=== PATIENT | male | born 1965 | race Caucasian/White ===

== ENCOUNTER 2025-04-08 12:20 | Outpatient (REF) | payer OTHER, SELFPAY ==
--- NOTE | ~2025-04-08 | XR_ITS ---
EXAMINATION: XR WRIST 3 OR MORE VIEWS RIGHT HISTORY: M25.531 - Pain in right wrist COMPARISON: There are no prior studies available for comparison. FINDINGS: Three views of the right wrist are submitted. Osseous mineralization is normal. There is no fracture or dislocation. The joint spaces are preserved. The soft tissues are unremarkable. XR/XR wrist RT min 3V IMPRESSION: Unremarkable examination of the right wrist. Electronically signed by: Shemar Billingsley MD 04/08/2025 02:01 PM EDT
--- OUTSIDE RECORDS SUMMARY | 2025-04-09 13:55 | XMS_ITS | Encounter Summary ---
Author Organization [facility] Address [address] [place] [address] Care Team Providers Care Drafter Electrical Name Role Phone Jono Sears MD Primary Care Provider [phone] Poppy Girard MD Unavailable Luke Church MD Unavailable [phone] Reason for Visit * Reason Comments ANXIOUS,NOT SLEEPING Encounter Details Date Type Department Care Team (Late st Contact Info) Description [address] 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 PLEASE CALL [phone] documented in this encounter Plan of Treatment Not on file documented as of this encounter Visit Diagnoses Not on filedocumented in this encounter Care Teams Drafter Electrical Relationship Specialty Start Date End Date Jono Sears MD [address] [place] [address] PCP - General 01/15/19 Poppy Girard MD [address] [place] [address] Cardiovascular Disease 01/15/19 Luke Church MD [address] [place] [address] Surgery, Cardiac 01/15/19 documented as of this encounter
--- OUTSIDE RECORDS SUMMARY | 2025-04-09 13:56 | XMS_ITS | Clinical Summary ---
Author Organization [facility] Address [address] [place], [place] [id number] Phone Care Team Providers Care Inspector Watch Parts Name Role Phone Jono Sears MD Primary Care Provider [phone] Social History Tobacco Use Types Packs/Day Years [...] PPO CIG[employer] PPO CIG PPO Care Teams Inspector Watch Parts Relationship Specialty Start Date End Date Jono Sears MD PCP - General Internal Medicine 12/05/18 Additional Source Comments The information contained in this document represents components of the legal health record. It is not the complete legal health record.[facility]
--- OUTSIDE RECORDS SUMMARY | 2025-04-09 13:56 | XMS_ITS | Clinical Summary ---
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 60 tablet 01/21/2019 Active Cannabidiol Non-THC (CBD) Misc [place]/Smoke/Vap or/Oil Inhale as needed. 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 Not on file [...] patient's age to complete this topic Insurance [address] [place], [place] [address] Advance Directives * Full Code (Latest Code Status on File) Date Activated Date Inactivated Comments 01/17/2019 5:52 PM * Full Code Date Activated Date Inactivated Comments 01/16/2019 1:43 PM 01/17/2019 5:52 PM Care Teams Contract Administrative Assistant Relationship Specialty Start Date End Date Jono Sears MD [address] [place] [address] PCP - General 01/15/19 Poppy Girard MD [address] [place] [address] Cardiovascular Disease 01/15/19 Luke Church MD [address] [address] Surgery, Cardiac 01/15/19
--- OUTSIDE RECORDS SUMMARY | 2025-04-09 13:56 | XMS_ITS | Clinical Summary ---
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
--- OUTSIDE RECORDS SUMMARY | 2025-04-09 13:56 | XMS_ITS | Encounter Summary ---
Author Organization [facility] Address [address] [place] [address] Care Team Providers Care Local Driver Name Role Phone Jono Sears MD Primary Care Provider [phone] Poppy Girard MD Unavailable Luke Church MD Unavailable [phone] Reason for Visit * Reason Comments Medication Refill Encounter Details Date Type Department Care Team (Late st Contact Info) Description 02/24/2019 Refill [facility] Cardiothoracic Surgery [address] [address] Madelin Henry, ICT TEACHER [address] [address] Social History Tobacco Use Types [...] 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
--- OUTSIDE RECORDS SUMMARY | 2025-04-09 13:56 | XMS_ITS | Encounter Summary ---
Author Organization [facility] Address [address] [place] [address] Care Team Providers Care Roll Tube Setter Name Role Phone Jono Sears MD Primary Care Provider [phone] Poppy Girard MD Unavailable Luke Church MD Unavailable [phone] Reason for Visit * Reason Comments BP Encounter Details Date Type Department Care Team (Late st Contact Info) Description 01/29/2019 Telephone [facility] Cardiothoracic Surgery [address] [address] Luke Church MD [address] [place] [address] BP Social History Tobacco Use Types [...] 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 [phone] documented in this encounter Plan of Treatment Not on file documented as of this encounter Visit Diagnoses Not on filedocumented in this encounter Care Teams Roll Tube Setter Relationship Specialty Start Date End Date Jono Sears MD [address] [place] [address] PCP - General 01/15/19 Poppy Girard MD [address] [place] [address] Cardiovascular Disease 01/15/19 Luke Church MD [address] [place] [address] Surgery, Cardiac 01/15/19 documented as of this encounter
--- OUTSIDE RECORDS SUMMARY | 2025-04-09 13:56 | XMS_ITS | Encounter Summary ---
Author Organization [facility] Address [address] [place] [address] Care Team Providers Care Field Marketing Specialist Name Role Phone Jono Sears MD Primary Care Provider [phone] Poppy Girard MD Unavailable Luke Church MD Unavailable [phone] Reason for Visit * Reason Comments Medication Refill Encounter Details Date Type Department Care Team (Late st Contact Info) Description 02/24/2019 Refill [facility] Cardiothoracic Surgery [address] [address] Madelin Henry, FINANCIAL SYSTEMS DIRECTOR [address] [address] S/P CABG (coronary artery bypass [...] 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 Not on file Not on file documented as of this encounter Plan of Treatment Not on file documented as of this encounter Visit Diagnoses Diagnosis S/P CABG (coronary artery bypass graft) Postsurgical aortocoronary bypass status Cough documented in this encounter Care Teams Field Marketing Specialist Relationship Specialty Start Date End Date Jono Sears MD [address] [place] [address] PCP - General 01/15/19 Poppy Girard MD [address] [place] [address] Cardiovascular Disease 01/15/19 Luke Church MD [address] [place] [address] Surgery, Cardiac 01/15/19 documented as of this encounter
== END 2025-04-08 12:21 | disposition home or self-care (01) ==
LOC: HO.HOSX 12:20
PROVIDERS: Visit Provider Orthopaedic Surgery
DX: M65.4 Radial styloid tenosynovitis [de Quervain] (principal); M18.9 Osteoarthritis of first carpometacarpal joint, unspecified; R20.0 Anesthesia of skin
CPT/HCPCS: 20600; 73110; J1100; J2003

== ENCOUNTER 2025-04-08 13:38 | Outpatient (AMB) | payer OTHER, SELFPAY ==
--- NOTE | 2025-04-08 14:04 | MHC.OFFVIS ---
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 States pain is mainly on his radial aspect of wrist and radiates to his thumb, index finger and at times to his forearm. Pain is worse with pinching, lifting and chopping motions. Report this started about 1-2 months and has not improved. He wears a brace to bed with little relief. States ice helps. He is also having numbness and tingling daily in the mornings. No EMG done. 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 He complains of ~2 months right radial sided wrist pain, worse with pinching or gripping activities. He denies any prior treatment and finds some relief from ice. He also complains of numbness in his right hand. Symptoms intermittent, but daily, worse at night along with a burning sensation. He says he also has some left hand numbness but this is not particularly bothersome He works primarily on a computer. [facility] Surgical History (Updated 04/08/25 @ 14:14 by LUL Juarez) H/O foot surgery History of kidney surgery H/O heart bypass surgery Social History (Updated 04/08/25 @ 14:15 by LUL Juarez) Patient Tobacco Use Status: Never used Tobacco Current occupational status: employed Current occupation: rt hand/ service adviser Review of Systems Const All systems reviewed & are unremarkable except as noted in HPI and below Physical Exam Vital Signs: BMI result Body Mass Index 34.4 Const General: cooperative, healthy appearing and no acute distress Orientation/consciousness: patient oriented x3 HEENT Head: Yes normocephalic and Yes atraumatic Eyes EOM: EOMs intact bilaterally Resp Effort & Inspection: normal respiratory effort and able to speak in complete sentences Cardio Jugular venous distension: no JVD Skin General skin exam: turgor normal Rashes: no rashes Neuro General: patient oriented x3 Extrem Other: Evaluation of Right Upper Extremity: The patient is alert, oriented, and in no acute distress Neuro: Median, Ulnar, Radial nerves motor and sensory intact Vascular: Cap refill brisk ROM: He can make a fist and extend all his digits No locking or catching Skin: No lacerations or abrasions. General: No Ecchymosis. No Erythema or evidence of infection. Mild tenderness over the basal joint, specifically most tender over the volar thenar aspect of the basal joint Pos CMC grind Minimal tenderness over the 1st dorsal compartment Mildly positive Michael test on the right No tenderness over the a1 thomas No tenderness over the MCP joint Radiographs: 3 views of the right wrist were taken and viewed by me today in clinic. They show no fractures, dislocations, or arthritic changes Psych Appearance: grossly normal Affect: normal affect Attitude: cooperative Office Procedures AMB Fracture Care Details: No fracture, injection Fracture Billing Code: Fracture Billing Code Assessment & Plan Assessment & Plan (1) Arthrosis of first carpometacarpal joint: Comment: R Code(s): M18.9 - Osteoarthritis of first carpometacarpal joint, unspecified Category: Medical (2) De Quervain's tenosynovitis, right: Code(s): M65.4 - Radial styloid tenosynovitis [de Quervain] Category: Medical (3) Bilateral hand numbness: Code(s): R20.0 - Anesthesia of skin Category: Medical Plan Assessment & Plan: 1. Right basal joint arthrosis 2. Right De Quervains tenosynovitis Mildly positive Michael test I educated him about these conditions I discussed operative and non-operative treatment options The patient would like to proceed with an injection. I recommend beginning with a basal joint injection I discussed activity modification, they should limit or avoid any heavy or repetitive pinching or gripping activities He was fitted for a comfort cool brace to wear with daily activity He should work on ROM exercises, and avoid any gripping or strengthening activities I discussed the use of assistive devices for daily activity Injection #1: The risks and benefits of a steroid injection including but not limited to risk of damage to blood vessels, nerve, tendon, infection, skin bleaching, persistent or worsening pain, and failure to improve symptoms were discussed with the patient and they wish to proceed with the steroid injection. Once consent was obtained the skin over the dorsum of the Right basal joint was sterilely prepped. The joint was then injected with a combination of 1 mL of dexamethasone (4mg/ml) and 1% plain Lidocaine. The patient appears to have tolerated the procedure well and with no complications. He had some good early relief before leaving clinic, reporting pain relief of 50%-60% . He knows that they may not have another steroid injection into this joint for least 4 months. If however he is noting pain in line with the 1st dorsal compartment tendons, he may benefit from a 1st dorsal compartment injection. I would prefer not to do this sooner than about 6 weeks from now. 3. Right hand numbness Symptoms intermittent, but daily, worse at night 4. Left hand numbness Symptoms intermittent & occasional I ordered a NCS to assess for peripheral nerve compression He will follow up when completed for review Scribed for Magnolia Engle MD by Dani Genao, medical office technologist, on 04/08/25 at 2:20 PM, EST. Orders: Orders XR wrist RT min 3V Today M25.531 - Pain in right wrist NE nerve conduction velocity Today R20.0 - Anesthesia of skin, R20.2 - Paresthesia of skin NE electromyogram (EMG) Today R20.0 - Anesthesia of skin, R20.2 - Paresthesia of skin Coding Level of Care Code Est Pt Level 4 (19844) Diagnoses Arthrosis of first carpometacarpal joint M18.9 De Quervain's tenosynovitis, right M65.4 Bilateral hand numbness R20.0 CPT Codes Fracture Care - Fracture Billing Code: Fracture Billing Code ([id number])
[2025-04-08 14:15] VITALS: BMI 34.4
--- OUTSIDE RECORDS SUMMARY | 2025-04-08 14:53 | XMS_ITS | Encounter Summary ---
Author Organization [facility] Address [address] [place] [address] Care Team Providers Care Enterostomal Nurse Name Role Phone Jono Sears MD Primary Care Provider [phone] Poppy Girard MD Unavailable Luke Church MD Unavailable [phone] Reason for Visit * Reason Comments ANXIOUS,NOT SLEEPING Encounter Details Date Type Department Care Team (Late st Contact Info) Description 2019 Telephone [facility] Cardiothoracic Surgery [address] [address] Luke Church MD [address] [place] [address] ANXIOUS,NOT SLEEPING Social History Tobacco Use Types Packs/Day Years Used Date Smoking Tobacco: Never Smokeless Tobacco: Never Alcohol Use Standard Drinks/Week Comments Yes 0 (1 standard drink = 0.6 oz pur e alcohol) 2/week AUDIT-C Answer Date Recorded Frequency of Alcohol Consumption 2-4 times a sun01/16/2019 Average Number of Drinks Not on file 019 Frequency of Binge Drinking Not on file 01/06 Sex and Gender Information Value Date Recorded Sex Assigned at Not on file Legal Sex Male 12:46 PM EDT Gender Identity Not on file Sexual Orientation Not on file 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 He states that overall he is been feeling good. His pain is improved on the ibuprofen and of Dilaudid. His biggest complaint is lack of sleep and feeling edgy and anxious. Which he said just had started yesterday after increasing the frequency of his Dilaudid. I reiterated taking ibuprofen 400 mg every 6 hours and Dilaudid 2 mg every 6 hours. Prior to surgery he was taking his CBD supplement for sleep and overall arthritis. He was also taking melatonin. I instructed him to restart the CBD supplement and continue with the melatonin. I asked that he try to cut back the narcotic as this can be anxiety provoking. He understood and agreed with the plan. I also reiterated this with the visiting nurse. * Telephone Encounter - Geneva Leary - 2019 10:12 AM EDT PATIENT CALLED. S/P CABG. ANXIOUS AND NOT SLEEPING WELL. PLEASE CALL [phone] documented in this encounter Plan of Treatment Not on file documented as of this encounter Visit Diagnoses Not on filedocumented in this encounter Care Teams Enterostomal Nurse Relationship Specialty Start Date End Date Jono Sears MD [address] [place] [address] PCP - General 01/15/19 Poppy Girard MD [address] [place] [address] Cardiovascular Disease 01/15/19 Luke Church MD [address] [place] [address] Surgery, Cardiac 01/15/19 documented as of this encounter
--- OUTSIDE RECORDS SUMMARY | 2025-04-08 14:53 | XMS_ITS | Clinical Summary ---
Author Organization [facility] Address [address] [place], [place] [id number] Phone Care Team Providers Care Bench Technician Name Role Phone Jono Sears MD Primary Care Provider [phone] Social History Tobacco Use Types Packs/Day Years Used Date Smoking Tobacco: Never Assessed Education Answer Date Recorded Are you interested in more education? Not on carlos e 11/03/2022 Are you concerned about learning? Not on file 11/03/2022 No 11/03/2022 No 11/03/2022 Digital Access Answer Date Recorded No 12/04/2022 No 12/04/2022 No 12/04/2022 Reliable internet access at home? Not on file 12/04/2022 Device with a working camera? Not on file Sex and Gender Information Value Date Recorded Sex Assigned at Not on file Legal Sex Male 10:34 PM EDT Gender Identity Not on file Sexual Orientation Not on file Plan of Treatment Not on file Medical Devices Not on file Insurance CIGNA PPO CIG PPO CIGNA PPO CIGNA PPO CIGNA PPO CIGNA PPO CIGNA PPO CIGNA PPO CIG PPO Care Teams Bench Technician Relationship Specialty Start Date End Date Jono Sears MD PCP - General Internal Medicine 12/05/18 Additional Source Comments The information contained in this document represents components of the legal health record. It is not the complete legal health record.[facility]
--- OUTSIDE RECORDS SUMMARY | 2025-04-08 14:54 | XMS_ITS | Encounter Summary ---
Author Organization [facility] Address [address] [place] [address] Care Team Providers Care Pull Up Hand Name Role Phone Jono Sears MD Primary Care Provider Poppy Girard MD Unavailable Luke Church MD Unavailable [phone] Reason for Visit * Reason Comments BP Encounter Details Date Type Department Care Team (Late st Contact Info) Description 01/29/2019 Telephone 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 BP was running in the 140/80-90 but repeat check a few hours later it came down after meds. I updated her about office visit yesterday. She stated he slept better last night with Tramadol. I told her that he needs to continue IS and use inhaler to help his lungs. She understood and will reiterate. * Telephone Encounter - Geneva Davis - 01/29/2019 3:12 PM EDT PLEASE CALL HAVEN MORENO NURSE RE: BP RUNNING A LITTLE HIGH. [phone] documented in this encounter Plan of Treatment Not on file documented as of this encounter Visit Diagnoses Not on filedocumented in this encounter Care Teams Pull Up Hand Relationship Specialty Start Date End Date Jono Sears MD [address] [place] [id number] PCP - General 01/15/19 Poppy Girard MD [address] [place] [address] Cardiovascular Disease 01/15/19 Luke Church MD [address] [place] [address] Surgery, Cardiac 01/15/19 documented as of this encounter
--- OUTSIDE RECORDS SUMMARY | 2025-04-08 14:54 | XMS_ITS | Clinical Summary ---
Author Organization [facility] Address [address] [place] [address] Care Team Providers Care Foundation Director Name Role Phone Jono Sears MD Primary Care Provider [phone] Allergies Active Allergy Reactions Criticality Noted Date Comments Naproxen 05/09/2018 Tamsulosin 05/09/2018 Medications Medication Sig Dispensed Refills Start Date End Date Status pravastatin (PRAVACHOL) tablet 80 mg Take 80 mg by mouth daily. 0 Active allopurinol (ZYLOPRIM) 300 MG tablet Take 300 mg by mouth daily. 0 Active omeprazole (PriLOSEC) 20 MG capsule Take 20 mg by mouth daily. 0 Active Multiple Vitamins-Iron (MULTIVITAMIN/IRON PO) Take by mouth. 0 Active vitamin C (ASCORBIC ACID) 500 MG tablet Take 500 mg by mouth daily. 0 Active Flaxseed, Linseed, (FLAX SEEDS PO) Take by mouth. 0 Activ e aspirin EC 81 MG tablet Take 81 mg by mouth daily. 0 Active Magnesium 400 MG CAPS Take by mouth. 0 Active metoprolol tartrate (LOPRESSOR) 50 MG tablet Take 50 mg by mouth 2 (two) times a day. 0 Active valsartan (DIOVAN) tablet 160 mg Take 160 mg by mouth 2 (two) times a day. 0 Active Active Problems Problem Noted Date Diagnosed Date Coronary artery disease invo lving cheesh-na coronary artery of cheesh-na heart without angina pectoris 06/10/2019 S/P quadruple vessel bypass 06/10/2019 Lymphadenopathy, mesenteric 05/09/2018 Inguinal lymphadenopathy 05/09/2018 Social History Tobacco Use Types Packs/Day Years Used Date Smoking Tobacco: Never Smokeless Tobacco: Never Alcohol Use Standard Drinks/Week Comments Yes 1 (1 standard drink = 0.6 oz pur e alcohol) socially Sex and Gender Information Value Date Recorded Sex Assigned at Not on file Gender Identity Not on file Sexual Orientation Not on file Last Filed Vital Signs Vital Sign Reading Time Taken Comments Blood Pressure 154/86 06/09/2019 2:22 PM EST Pulse 58 06/09/2019 2:22 PM EST Temperature 36.4 C (97.5 F) 06/09/2019 2:22 PM EST Respiratory Rate - - Oxygen Saturation - - Inhaled Oxygen Concentration - - Weight 113.4 kg (250 lb) 06/09/2019 2:22 PM EST Height 177.8 cm (5' 10 ) 06/09/2019 2:22 PM EST Body Mass Index 35.87 06/09/2019 2:22 PM EST Plan of Treatment Health Maintenance Due Date Last Done Comments Hepatitis C Screening 1965 COVID-19 Vaccine (#1) 1965 Pneumococcal Vaccine (1 of 2 - PCV) 1969 Depression Screening 1975 Preventative Health Evaluation 1981 DTap / Tdap / Td (1 - Tdap) 1982 Colon Cancer Screening (Colonoscopy) 01/25/2008 Shingrix-Zoster Vaccine (1 of 2) 2013 Influenza Vaccine (#1) 2025 RSV Adult > 60+ Yrs or Pregn ant (1 - 1-dose 75+ series) 2038 Hepatitis B Vaccines Aged Out No long er eligible based on patient's age to complete this topic RSV Ped < 20 months Aged Out No longe r eligible based on patient's age to complete this topic Care Teams Foundation Director Relationship Specialty Start Date End Date Jono Sears MD [address] [place] [phone] PCP - General Internal Medicine 05/02/18
--- OUTSIDE RECORDS SUMMARY | 2025-04-08 14:54 | XMS_ITS | Encounter Summary ---
Author Organization [facility] Address [address] [place] [address] Care Team Providers Care Rate Reviewer Name Role Phone Jono Sears MD Primary Care Provider [phone] Poppy Girard MD Unavailable Luke Church MD Unavailable [phone] Reason for Visit * Reason Comments Medication Refill Encounter Details Date Type Department Care Team (Late st Contact Info) Description 02/24/2019 Refill [facility] Cardiothoracic Surgery [address] [address] Madelin Henry, BIOMEDICAL ENGINEERING PROFESSOR [address] [address] S/P CABG (coronary artery bypass graft); Cough Social History Tobacco Use Types Packs/Day Years [...] 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 Not on file Not on file documented as of this encounter Plan of Treatment Not on file documented as of this encounter Visit Diagnoses Diagnosis S/P CABG (coronary artery bypass graft) Postsurgical aortocoronary bypass status Cough documented in this encounter Care Teams Rate Reviewer Relationship Specialty Start Date End Date Jono Sears MD [address] [place] [address] PCP - General 01/15/19 Poppy Girard MD [address] [place] [address] Cardiovascular Disease 01/15/19 Luke Church MD [address] [place] [address] Surgery, Cardiac 01/15/19 documented as of this encounter
--- OUTSIDE RECORDS SUMMARY | 2025-04-08 14:54 | XMS_ITS | Clinical Summary ---
Author Organization [facility] Address [address] [place] [address] Care Team Providers Care Box Chipper Name Role Phone Jono Sears MD Primary Care Provider [phone] Poppy Girard MD Unavailable Luke Church MD Unavailable [phone] Allergies Active Allergy Reactions Criticality Noted Date Comments Adhesives/Tape Hives Medium 01/16/2019 Blisters on abdomen Naproxen Other (See Comments) 05/09/2018 Leg tremmors Tamsulosin Other (See Comments) 05/09/2018 Malaise Medications FLAXSEED, LINSEED, PO Take by mouth daily. Active allopurinol (ZYLOPRIM) 300 MG tablet Take 300 mg by mouth daily. Active aspirin enteric coated (ECOTRIN LOW STRENGTH) 81 MG EC tablet Take 81 mg by mouth daily. Active MAGNESIUM PO Take 500 mg by mouth daily. Active OMEprazole (PriLOSEC) 20 MG capsule Take 20 mg by mouth every morning before breakfast. Active pravastatin (PRAVACHOL) 80 MG tablet Take 80 mg by mouth daily. 12/23/2018 Active Multiple Vitamins-Minera ls (MENS MULTI VITAMIN & MINERAL PO) Take 1 tablet by mouth daily. Active Melatonin 5 MG Cap Take 5 mg by mouth nightly. Active metoPROLOL TARTRATE (LOPRESSOR) 50 MG tabletIndicatio ns:Coronary artery disease involving sioux coronary artery of sioux heart with angina pectoris Take 1 tablet (50 mg total) by mouth every 12 (twelve) hours around the clock. 60 tablet 01/21/2019 Active Cannabidiol Non-THC (CBD) Misc [place]/Smoke/Vap or/Oil Inhale as needed. Active tiotropium (SPIRIVA RESPIMAT) 2.5 MCG/ACT inhalationIndic ations:S/P CABG (coronary artery bypass graft),Cough Inhale 1 puff daily. 1 Inhaler 01/28/2019 Active Active Problems Problem Noted Date Diagnosed Date CAD (coronary artery disease) 01/16/2019 Inguinal lymphadenopathy 05/09/2018 Lymphadenopathy, mesenteric 05/09/2018 Simple renal cyst 10/04/2010 Overview (01/16/2019): Renal Cyst Family History Medical History Relation Name Comments Lung cancer Brother 1 Heart attack Brother 2 Migraines Daughter 2 Coronary artery disease Father CABG Heart attack Maternal Grandfather Heart attack Maternal Grandmother Melanoma Mother Alcohol abuse Sister 1 Relation Name Status Comments Brother 1 Brother 2 Alive Brother 3 Alive Brother 4 Alive Daughter 1 Alive Daughter 2 Alive Father Maternal Grandfather Maternal Grandmother Mother Sister 1 Alive Sister 2 Alive Sister 3 Alive Sister 4 Alive Social History Tobacco Use Types Packs/Day Years [...] 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 Not on file Not on file Last Filed Vital Signs Vital Sign Reading Time Taken Comments Blood Pressure 122/84 02/12/2019 9:28 AM EDT Pulse 55 02/12/2019 9:28 AM EDT Temperature 36 C (96.8 F) 02/12/2019 9:28 AM EDT Respiratory Rate 14 02/12/2019 9:28 AM EDT Oxygen Saturation 98% 02/12/2019 9:28 AM EDT Inhaled Oxygen Concentration - - Weight 105 kg (232 lb) 02/12/2019 9:28 AM EDT Height 177.8 cm (5' 10 ) 02/12/2019 9:28 AM EDT Body Mass Index 33.29 02/12/2019 9:28 AM EDT Plan of Treatment Health Maintenance Due Date Last Done Comments Hepatitis C Virus Screening 1965 HIV Screening 01/25/1976 DTaP/Tdap/Td Vaccines (1 - Tdap) 1982 Pneumococcal Vaccines 50+ (1 of 2 - PCV) 1982 Colonoscopy 01/25/2008 Zoster (Shingles) Vaccine (1 of 2) 2013 RSV Vaccine 60 years and old er and Patients (1 - Risk 60-74 years 1-dose series) 2023 Influenza Vaccine 02/06/2025 COVID-19 Vaccine (1 - 2023-2 5 season) 2025 Hepatitis B Vaccines Aged Out No long er eligible based on patient's age to complete this topic Insurance [address] [place], [place] [address] Advance Directives * Full Code (Latest Code Status on File) Date Activated Date Inactivated Comments 01/17/2019 5:52 PM * Full Code Date Activated Date Inactivated Comments 01/16/2019 1:43 PM 01/17/2019 5:52 PM Care Teams Box Chipper Relationship Specialty Start Date End Date Jono Sears MD [address] [place] [id number] PCP - General 01/15/19 Poppy Girard MD [address] [place] [address] Cardiovascular Disease 01/15/19 Luke Church MD [address] [address] Surgery, Cardiac 01/15/19
--- OUTSIDE RECORDS SUMMARY | 2025-04-08 14:54 | XMS_ITS | Encounter Summary ---
Author Organization [facility] Address [address] [place] [address] Care Team Providers Care Automotive General Manager Name Role Phone Jono Sears MD Primary Care Provider [phone] Poppy Girard MD Unavailable Luke Church MD Unavailable [phone] Reason for Visit * Reason Comments Medication Refill Encounter Details Date Type Department Care Team (Late st Contact Info) Description 02/24/2019 Refill [facility] Cardiothoracic Surgery [address] [address] Madelin Henry, PACKAGE LINER [address] [address] Social History Tobacco Use Types Packs/Day Years [...] 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
== END 2025-04-08 15:06 | disposition home or self-care (01) ==
LOC: HO.HOS 13:38
PROVIDERS: Visit Provider Orthopaedic Surgery
DX: M18.11 Unilateral primary osteoarthritis of first carpometacarpal joint, right hand (principal); M65.4 Radial styloid tenosynovitis [de Quervain]; R20.0 Anesthesia of skin
CPT/HCPCS: 20600; 99203

== ENCOUNTER → 2025-04-08 13:44 | Outpatient (BNV) | payer OTHER, SELFPAY | PROVIDERS: Visit Provider Radiology Diagnostic Radiology | DX: M25.531 Pain in right wrist (principal) | CPT/HCPCS: 73110 ==